=== PATIENT | male | born 1980 | race Native Hawaiian/Other Pacific Islander ===

== ENCOUNTER 2018-03-28 13:25 | Emergency (ER) | payer OTHER ==
[~2018-03-28] VITALS: Ht 177.8 cm; Wt 68.0 kg
[2018-03-28 14:47] LABS: PLATELET COUNT 287 K/uL (142-355)
[2018-03-28 15:26] LABS: POTASSIUM 3.8 mmol/L (3.6-5.2); SODIUM 138 mmol/L (136-145)
[2018-03-28 16:55] VITALS: BP 138/72; TEMP 98
== END 2018-03-28 16:55 | disposition home or self-care (01) ==
LOC: ED 13:25
DX: R10.13 Epigastric pain (principal); K59.00 Constipation, unspecified; F19.90 Other psychoactive substance use, unspecified, uncomplicated; R00.1 Bradycardia, unspecified
CPT/HCPCS: 36415; 74022; 80053; 80307; 81000; 82150; 82550; 82553; 83690; 84484; 85027; 93005; 96374; 96375; 99284; J1885; J2405

== ENCOUNTER 2020-11-01 14:28 | Emergency (ER) | payer OTHER ==
[~2020-11-01] VITALS: Ht 177.8 cm; Wt 68.0 kg
[2020-11-01 14:51] VITALS: TEMP 98
[2020-11-01 16:33] VITALS: BP 130/68
== END 2020-11-01 16:34 | disposition home or self-care (01) ==
LOC: ED 14:28
DX: L08.89 Other specified local infections of the skin and subcutaneous tissue (principal); L03.012 Cellulitis of left finger; W23.0XXA Caught, crushed, jammed, or pinched between moving objects, initial encounter; Y92.89 Other specified places as the place of occurrence of the external cause
CPT/HCPCS: 96372; 99282; J0696